=== PATIENT | male | born 1965 | race Caucasian/White ===

== ENCOUNTER 2018-09-21 12:59 | Emergency (ER) | payer OTHER ==
[~2018-09-21] VITALS: Ht 188 cm; Wt 97.3 kg
[~2018-09-21 12:59] MED LIST: ALBU8.5H5 INH; OMEP10CA4 PO
[2018-09-21 13:51] LABS: BASOPHILS # (AUTO) 0.03 x10^3/uL (0-0.1); BASOPHILS % (AUTO) 0 % (0-1); EOSINOPHILS # (AUTO) 0.19 x10^3/uL (0-0.4); EOSINOPHILS % (AUTO) 3 % (1-7); LYMPHOCYTES # (AUTO) 1.74 x10^3/uL (1-3.4); LYMPHOCYTES % (AUTO) 24 % (22-44); MD NO; MEAN CORPUSCULAR HEMOGLOBIN 33.3 pg (27.5-34.5); MEAN CORPUSCULAR HGB CONC 34.2 g/dL (33.2-36.2); MEAN CORPUSCULAR VOLUME 97.5 fL (81-97); MONOCYTES # (AUTO) 0.55 x10^3/uL (0.2-0.8); MONOCYTES % (AUTO) 8 % (2-9); NEUTROPHILS # (AUTO) 4.65 x10^3/uL (1.8-6.8); NEUTROPHILS % (AUTO) 65 % (42-75); PLATELET COUNT 209 x10^3/uL (130-400); RED BLOOD COUNT 4.84 x10^6/uL (4.38-5.82)
[2018-09-21 13:57] LABS: ALANINE AMINOTRANSFERASE 47 U/L (12-78); ANION GAP 5 mmol/L (5-15); CHLORIDE 111 mmol/L (98-107); CREATININE 1.33 mg/dL (0.7-1.3)
[2018-09-21 14:01] LABS: ALKALINE PHOSPHATASE 74 U/L (45-117); BILIRUBIN,TOTAL 1.2 mg/dL (0.2-1.0); TROPONIN I < 0.015 ng/mL (0.000-0.045)
--- NOTE | 2018-09-21 14:57 | NUR ---
AMBULATORY TO ROOM AT THIS TIME
--- NOTE | 2018-09-21 15:00 | NUR ---
CP X 6 DAYS. WORSE WITH LEANING FORWARD AND LAYING DOWN. TOOK ASA TODAY. NO RADIATION DOES NOT SMOKE/ HX OF HYPERTENSION
[2018-09-21] MEDS ORDERED: MAALOX/HYOSCYAMINE/LIDOCAINE 45 ML BTL ONE (15:24)
--- NOTE | 2018-09-21 15:29 | NUR ---
MEDICATED PER EMAR. PROVIDER TO BEDSIDE TO REVIEW DX WELL PLAN. VITALS REMAIN STABLE PATIENT EDUCATED ON SXS TO WATCH FOR. TEACH BACK EFFECTIVE
[2018-09-21] MEDS ORDERED: MAALOX/HYOSCYAMINE/LIDOCAINE 45 ML BTL PO ONE (15:30)
[2018-09-21 15:33] VITALS: BP 144/97
== END 2018-09-21 15:37 ==
LOC: ED 15:31
DX: R07.89 Other chest pain (principal)
CPT/HCPCS: 36415; 71046; 80053; 84484; 85025; 93005; 99284

== ENCOUNTER → 2018-10-29 | Outpatient (CLI) | payer OTHER ==
[~2018-10-29] MED LIST changes: +REGADENOSON 0.4 MG/5 ML SYRINGE ONE
== END | disposition home or self-care (01) ==
LOC: CFH 08:30
PROVIDERS: ATTEND Family Medicine
DX: R07.9 Chest pain, unspecified (principal)
CPT/HCPCS: 78452; 93017; A9502; J2785